=== PATIENT | female | born 1960 | race Hispanic/Latino ===

== ENCOUNTER 2018-05-27 15:09 | Emergency (ER) | payer SELFPAY ==
[~2018-05-27] VITALS: Ht 160 cm; Wt 81.6 kg
--- OUTSIDE RECORDS SUMMARY | 2018-05-27 15:12 | XMS REPORT | Summary of Care ---
Author Author Apolonia Brand M.A. Organization Unknown Address Unknown Phone Unavailable Care Team Providers Care Soccer Coach Name Role Phone MISAEL Alfaro, DANIELLE Unavailable Unavailable Ashley Brand M.A.eralda Unavailable Unavailable NISA GAMBOA [place], TATYANA MCBRIDE Unavailable Unavailable NISA Anderson, TATYANA Ma Unavailable MISAEL SANCHEZ, DANIELLE Unavailable Unavailable Unavailable Unavailable Functional Status Name Dates Details Functional status health issues are not documented Status: Name Dates Details Cognitive status health issues are not documented Status: Problems Name Dates Details Weight gain (783.1, R63.5) Status: Active Flu vaccine need (V04.81, Z23) Status: Active Flu vaccine need (V04.81, Z23) Status: Active Former smoker (V15.82, Z87.891) Status: Active Controlled diabetes mellitus (250.00, E11.9) Status: Active Benign essential HTN (401.1, I10) Status: Active Hypothyroidism, postablative (244.1, E89.0) Status: Active Obesity (BMI 30-39.9) (278.00, E66.9) Status: Active Depression with anxiety (300.4, F41.8) Status: Active Medications Name Dates Details MetFORMIN HCl - 500 MG Oral Tablet TAKE 1 TABLET TWICE DAILY Quantity: 180 DOUGLAS P.A., DANIELLE * Start : 12-Aug-2015 Active Aspirin Adult Low Dose 81 MG Oral Tablet Delayed Release TAKE 1 TABLET DAILY. * Refills: 0 * Start : 12-Aug-2015 Active Vitamin B12 TABS * Refills: 0 Active Billie Contour Test In Vitro Strip TEST ONCE DAILY. * Quantity: 50 Refills: 3 DOUGLAS P.A., DANIELLE * Start : 08-Jun-2016 Active Billie Microlet Lancets For glucose testing once daily. * Quantity: 100 Refills: 1 DOUGLAS P.A., DANIELLE * Start : 08-Jun-2016 Active V-R Vitamin E CAPS * Refills: 0 Active Losartan Potassium 25 MG Oral Tablet TAKE 1 TABLET DAILY * Quantity: 90 Refills: 1 DOUGLAS P.A., DANIELLE * Start : 08-Jul-2017 Active Levothyroxine Sodium 112 MCG Oral Tablet TAKE 1 TABLET DAILY * Quantity: 90 Refills: 1 DOUGLAS P.A., DANIELLE * Start : 01-Mar-2018 Active Venlafaxine HCl ER 75 MG Oral Capsule Extended Release 24 Hour TAKE 1 CAPSULE DAILY * Quantity: 90 Refills: 1 DOUGLAS P.A., DANIELLE * Start : 02-Mar-2018 Active Allergies and Adverse Reactions Name Dates Details No Known Drug Allergies (Allergy) Status: Active Past Medical History Name Dates Details History of diabetes mellitus (V12.29, Z86.39) Status: Resolved History of Graves' disease (V12.29, Z86.39) Status: Resolved History of hyperthyroidism (V12.29, Z86.39) Status: Resolved Procedures Procedure Dates Details [QLH] HEMOGLOBIN A1c Date: 02-Mar-2018 [QL] MICROALBUMIN, RANDOM URINE (W/CREATININE) Date: 02-Mar-2018 [QL] TSH, 3RD GENERATION W/REFLEX TO FT4 Date: 02-Mar-2018 [QLH] T3, TOTAL Date: 02-Mar-2018 [QLH] T4, FREE Date: 02-Mar-2018 [QL] CMP W/EGFR Date: 02-Mar-2018 [] LIPID PANEL WITH REFLEX TO DIRECT LDL Date: 02-Mar-2018 Immunization Name Dates Details Fluzone Quadrivalent 0.5 ML Intramuscular Suspension Lot #: [id number] on: 22-Oct-2016 Fluzone INJ Comments: Approx Family History Name Dates Details Family history of cardiac disorder (V17.49, Z82.49) Status: Active Name Dates Details Family history of diabetes mellitus (V18.0, Z83.3) Status: Active Family history of hyperthyroidism (V18.19, Z83.49) Status: Active Family history of hypothyroidism (V18.19, Z83.49) Status: Active Family history of Melanoma (172.9, C43.9) Status: Active Name Dates Details Family history of diabetes mellitus (V18.0, Z83.3) Status: Active Name Dates Details Family history of cardiac disorder (V17.49, Z82.49) Status: Active Social History Name Dates Details - Status: Name Dates Details Never smoker Former smoker Vital Signs Date Test Result Details [id number] Physical Findings 16 Status: Comments: PHQ-9 Adult Depression Screening :43 BP Systolic 124 mm[Hg] Status: Comments: Location: LUE; Position: Sitting BP Diastolic 62 mm[Hg] Status: Comments: Location: LUE; Position: Sitting Height 63 in Status: Weight 212.5 lb Status: Body Mass Index Calculated 37.64 kg/m2 Status: Body Surface Area Calculated 1.98 m2 Status: Temperature 97.7 f Status: Comments: Method: Temporal Heart Rate 85 /min Status: Respiration Rate 16 /min Status: :41 Physical Findings 0 Status: Comments: Alcohol Screen - How many times in the past yr have you had 5 (for M) or 4 (for F) or 4 (for all > 65yrs) or more drinks in a day? Results Date Description Value Details :00 [O] Hemoglobin A1c (in office) HEMOGLOBIN A1c 6.7 (Normal) :01 [[facility]] T3, TOTAL T3 Total 0.87 ng/ml Range: 0.60-1.81 :01 [[facility]] CMP W/EGFR Sodium Level 139 {mEq/l} Range: 135-145 Potassium Level 4.1 {mEq/l} Range: 3.5-5.1 Chloride Level 103 {mEq/l} Range: 95-109 Carbon Dioxide 28 {mEq/l} Range: 24-32 AGAP 12.1 {mEq/l} Range: 10.0-20.0 Glucose Lvl 119 mg/dl (Above high threshold) Range: 70-99 Comments: Adult reference range values reflect the clinical guidelinesof the [place] [employer]. Creatinine Lvl 0.60 mg/dl Range: 0.50-1.40 Blood Urea Nitrogen 15 mg/dl Range: 7-22 BUN/Creatinine Ratio 25 Range: 6-25 Total Protein 7.2 g/dl Range: 6.4-8.4 Albumin Lvl 3.6 g/dl Range: 3.5-5.0 Globulin 3.6 g/dl Range: 2.7-4.2 A/G Ratio 1.0 Range: 0.7-1.6 Calcium Level Total 8.5 mg/dl Range: 8.5-10.5 ALT 30 u/l Range: 0-65 AST 14 u/l Range: 0-37 Bili Total 0.3 mg/dl Range: 0.2-1.3 Alk Phos 111 u/l Range: 39-136 eGFR 102 {ML/MIN/1.7} Comments: The eGFR is calculated using the CKD-EPI formula. In most young, healthyindividuals the eGFR will be >90 mL/min/1.73m2. The eGFR declines with age. AneGFR of 60-89 may be normal in some populations, particularly the elderly, forwhom the CKD-EPI formula has not been extensively validated. Use of the eGFR isnot recommended in the following populations:Individuals with unstable creatinine concentrations, including patients and those with serious co-morbid conditions.Patients with extremes in muscle mass or diet.The data above are obtained from the National Kidney Disease Education Program(NKDEP) which additionally recommends that when the eGFR is used in patientswith extremes of body mass index for purposes of drug dosing, the eGFR shouldbe multiplied by the estimated BMI. [[facility]] LIPID PANEL Chol 149 mg/dl Range: <=199 Trig 73 mg/dl Range: <=149 HDL Cholesterol 54 mg/dl (Below low threshold) Range: >=61 CHD Risk 2.76 (Below low threshold) Range: 3.90-5.80 LDL 80 mg/dl Range: <=99 VLDL 15 [[facility]] T4, FREE T4 Free 1.18 ng/dl Range: 0.76-1.46 [[facility]] TSH, 3RD GENERATION TSH 1.060 {uIU/ml} Range: 0.360-3.740 [[facility]] MICROALBUMIN, RANDOM URINE (W/O CREATININE) Urine Microalbumin 1420.0 mg/L [[facility]] HEMOGLOBIN A1c Hemoglobin A1c 6.8 % (Above high threshold) Range: <=5.6 Plan of Care Name Dates Details Planned Observations Planned Goals not documented Instructions Name Dates Details Instructions not documented Encounters Appointment; JOHN HICKEY M.D. Encounter Diagnosis: Problem not documented On: 26-Apr-2016 11:30 Appointment; DANIELLE DOUGLAS P.A. Encounter Diagnosis: Problem not documented On: 20-May-2016 13:00 Appointment; VLADIMIR MARTINEZ RD Encounter Diagnosis: Problem not documented On: 08-Jun-2016 13:00 Appointment; JOHN HICKEY M.D. Encounter Diagnosis: Problem not documented On: 06-Jul-2016 13:00 Appointment; DANIELLE DOUGLAS P.A. Encounter Diagnosis: Problem not documented On: 22-Oct-2016 13:00 Appointment; JOHN HICKEY M.D. Encounter Diagnosis: Problem not documented On: 29-Nov-2016 10:00 Appointment; JOHN HICKEY M.D. Encounter Diagnosis: Problem not documented On: 30-May-2017 10:00 Appointment; JOHN HICKEY M.D. Encounter Diagnosis: Problem not documented On: 30-Jun-2017 13:30 Appointment; DANIELLE DOUGLAS P.A. Encounter Diagnosis: Problem not documented On: 08-Jul-2017 13:15 Appointment; DANIELLE DOUGLAS P.A. Encounter Diagnosis: Problem not documented On: 02-Mar-2018 7:30
[2018-05-27 16:00] LABS: BASOPHILS # (AUTO) 0.1 (0.0-0.1); BASOPHILS % 0.5 % (0.0-1.0); EOSINOPHILS # (AUTO) 0.2 (0.0-0.4); EOSINOPHILS % 1.4 % (0.0-6.0); LYMPHOCYTES # (AUTO) 3.4 (1.0-3.2); LYMPHOCYTES % 28.2 % (18.0-39.1); MEAN CORPUSCULAR HEMOGLOBIN 30.2 pg (28-32); MEAN CORPUSCULAR HGB CONC 33.3 g/dL (31-35); MEAN CORPUSCULAR VOLUME 90.7 fL (81-99); MONOCYTES # (AUTO) 0.5 (0.2-0.8); MONOCYTES % 3.8 % (4.4-11.3); NEUTROPHILS # (AUTO) 7.9 (2.1-6.9); NEUTROPHILS % 65.8 % (38.7-80.0); PLATELET COUNT 199 x10e3/uL (140-360); RED CELL DISTRIBUTION WIDTH 16.1 % (11.7-14.4)
[2018-05-27 16:13] LABS: BILIRUBIN,URINE NEGATIVE (NEGATIVE); CLARITY,URINE CLOUDY (CLEAR); COLOR,URINE YELLOW (YELLOW); KETONES,URINE TRACE (NEGATIVE); LEUKOCYTE ESTERASE ,URINE NEGATIVE (NEGATIVE); NITRITE,URINE NEGATIVE (NEGATIVE); PROTEIN,URINE DIPSTICK 2+ (NEGATIVE); URINE UROBILINOGEN 0.2 mg/dL (0.2 - 1)
[2018-05-27 16:14] LABS: ALANINE AMINOTRANSFERASE 21 IU/L (0-55); ALBUMIN 3.8 g/dL (3.5-5.0); ALBUMIN/GLOBULIN RATIO 1.1 (0.8-2.0); ALKALINE PHOSPHATASE 93 IU/L (40-150); ANION GAP 15.5 mmol/L (8-16); BLOOD UREA NITROGEN 17 mg/dL (7-26); BUN/CREATININE RATIO 19 (6-25); CALCIUM 10.3 mg/dL (8.4-10.2); CARBON DIOXIDE 26 mmol/L (22-29); CHLORIDE 103 mmol/L (98-107); CREATINE KINASE 247 IU/L (29-168); CREATININE, SERUM 0.88 mg/dL (0.57-1.11); EST GLOMERULAR FILTRATION RATE > 60 ML/MIN (60-); GLUCOSE 176 mg/dL (74-118); POTASSIUM 3.5 mmol/L (3.5-5.1); SODIUM 141 mmol/L (136-145)
[2018-05-27 16:14] LABS: AMORPHOUS SEDIMENT,URINE FEW (FEW); BACTERIA,URINE MANY /HPF; EPITHELIAL CELLS,URINE FEW /LPF; WBC,URINE (MAN) 0-5 /HPF (0-5)
[2018-05-27] MEDS ORDERED: SODIUM CHLORIDE 0.9% 1000ML 1,000 ML IV STA (16:26)
[2018-05-27 17:13] LABS: FREE THYROXINE INDEX 0.6929 (1.4-3.8); THYROID STIMULATING HORMONE 78.596 uIU/mL (0.350-4.940)
--- NOTE | 2018-05-27 17:18 | Diagnostic Imaging Report ---
EXAMINATION: CHEST SINGLE (PORTABLE) INDICATION: ^CHEST PAIN ^[id number] ^1602 ^Y COMPARISON: None FINDINGS: AP view TUBES and LINES: None. LUNGS: Lungs are well inflated. Bilateral interstitial edema. No lobar consolidations. PLEURA: No pleural effusion or pneumothorax. HEART AND MEDIASTINUM: Prominent cardiac silhouette. BONES AND SOFT TISSUES: No acute osseous lesion. Soft tissues are unremarkable. UPPER ABDOMEN: No free air under the diaphragm. IMPRESSION: Bilateral interstitial edema. Signed by: Dr. Xiao Romero M.D. on 05/27/2018 5:15 PM
[2018-05-27 17:59] VITALS: BP 114/66
== END 2018-05-27 18:14 | disposition home or self-care (01) ==
LOC: ER 15:09
DX: R42 Dizziness and giddiness (principal); K52.9 Noninfective gastroenteritis and colitis, unspecified; E86.0 Dehydration; N30.90 Cystitis, unspecified without hematuria; E03.4 Atrophy of thyroid (acquired); E03.0 Congenital hypothyroidism with diffuse goiter
CPT/HCPCS: 36415; 71045; 80053; 81001; 82550; 82553; 83735; 84436; 84443; 84479; 84484; 85025; 87086; 93005; 99284; J7030

== ENCOUNTER 2018-09-16 13:48 | Emergency (ER) | payer SELFPAY ==
[~2018-09-16] VITALS: Ht 160 cm; Wt 81.6 kg
--- OUTSIDE RECORDS SUMMARY | 2018-09-16 13:51 | XMS REPORT | Continuity of Care Document ---
Author Author Huy [place] [facility] Address Unknown Phone Unavailable Care Team Providers Care Replenishment Specialist Name Role Phone [facility] Unavailable Unavailable Problems No Data Provided for This Section Medications No Data Provided for This Section Allergies, Adverse Reactions, Alerts No Known Medication Allergies Immunizations No Data Provided for This Section Results Order Name Results Value Reference Range Date Interpretation Comments Source Blood leukocytes automated count (number/volume) 11.99 4.8 - 10.8 05/27/2018 [facility] Blood erythrocytes automated count (number/volume) 4.30 3.6 - 5.1 05/27/2018 [facility] Blood hemoglobin measurement (moles/volume) 13.0 12.0 - 16.0 05/27/2018 [facility] Automated blood hematocrit (volume fraction) 39.0 34.2 - 44.1 05/27/2018 [facility] Automated erythrocyte mean corpuscular volume 90.7 81 - 99 05/27/2018 [facility] Automated erythrocyte mean corpuscular hemoglobin (mass per erythrocyte) 30.2 28 - 32 05/27/2018 [facility] Automated erythrocyte mean corpuscular hemoglobin concentration measurement (mass/volume) 33.3 31 - 35 05/27/2018 [facility] RDW BldCo-Rto 16.1 11.7 - 14.4 05/27/2018 [facility] Automated blood platelet count (count/volume) 199 140 - 360 05/27/2018 [facility] Automated blood segmented neutrophil count as percentage of total leukocytes 65.8 38.7 - 80.0 05/27/2018 [facility] Automated blood lymphocyte count as percentage ot total leukocytes 28.2 18.0 - 39.1 05/27/2018 [facility] Automated blood monocyte count as percentage of total leukocytes 3.8 4.4 - 11.3 05/27/2018 [facility] Automated blood eosinophil count as percentage of total leukocytes 1.4 0.0 - 6.0 05/27/2018 [facility] Automated blood basophil count as percentage of total leukocytes 0.5 0.0 - 1.0 05/27/2018 [facility] IM GRANULOCYTES % 0.3 0.0 - 1.0 05/27/2018 [facility] Automated blood neutrophil count 7.9 2.1 - 6.9 05/27/2018 [facility] Blood lymphocytes count (number/volume) 3.4 1.0 - 3.2 05/27/2018 [facility] Blood monocytes automated count (number/volume) 0.5 0.2 - 0.8 05/27/2018 [facility] Automated blood eosinophil count 0.2 0.0 - 0.4 05/27/2018 [facility] Automated blood basophil count (count/volume) 0.1 0.0 - 0.1 05/27/2018 [facility] Absolute Immature Granulocyte (auto 0.04 0 - 0.1 05/27/2018 [facility] Serum or plasma sodium measurement (moles/volume) 141 136 - 145 05/27/2018 [facility] Serum or plasma potassium measurement (moles/volume) 3.5 3.5 - 5.1 05/27/2018 [facility] Serum or plasma chloride measurement (moles/volume) 103 98 - 107 05/27/2018 [facility] Serum or plasma carbon dioxide, total measurement (moles/volume) 26 22 - 29 05/27/2018 [facility] Serum or plasma anion gap 15.5 8 - 16 05/27/2018 [facility] Serum or plasma urea nitrogen measurement (mass/volume) 17 7 - 26 05/27/2018 [facility] Serum or plasma creatinine measurement (mass/volume) 0.88 0.57 - 1.11 05/27/2018 [facility] Serum or plasma urea nitrogen/creatinine mass ratio 19 6 - 25 05/27/2018 [facility] Estimated glomerular filtration rate (GFR) determination > 60 60 05/27/2018 [facility] Glucose measurement 176 74 - 118 05/27/2018 [facility] Serum or plasma calcium measurement (mass/volume) 10.3 8.4 - 10.2 05/27/2018 [facility] Serum or plasma magnesium measurement (mass/volume) 1.7 1.3 - 2.1 05/27/2018 [facility] Serum or plasma total bilirubin measurement (mass/volume) 0.4 0.2 - 1.2 05/27/2018 [facility] Aspartate Amino Transf (AST/SGOT) 22 5 - 34 05/27/2018 [facility] Serum or plasma alanine aminotransferase measurement (enzymatic activity/volume) 21 0 - 55 05/27/2018 [facility] Serum or plasma protein measurement (mass/volume) 7.4 6.5 - 8.1 05/27/2018 [facility] Serum or plasma albumin measurement (mass/volume) 3.8 3.5 - 5.0 05/27/2018 [facility] Plasma globulin measurement (mass/volume) 3.6 2.3 - 3.5 05/27/2018 [facility] Serum or plasma albumin/globulin mass ratio 1.1 0.8 - 2.0 05/27/2018 [facility] Serum or plasma alkaline phosphatase measurement (enzymatic activity/volume) 93 40 - 150 05/27/2018 [facility] Serum or plasma creatine kinase measurement (enzymatic activity/volume) 247 29 - 168 05/27/2018 [facility] Serum or plasma creatine kinase MB measurement (mass/volume) 4.50 0 - 5.0 05/27/2018 [facility] Troponin I measurement by highly sensitive enzyme immunoassay < 0.001 0 - 0.300 05/27/2018 [facility] Free thyroxine index 0.6929 1.4 - 3.8 05/27/2018 [facility] Serum or plasma thyroxine (T4) measurement (mass/volume) 2.44 4.5 - 10.9 05/27/2018 [facility] Serum or plasma triiodothyronine resin uptake (T3RU) 28.40 22.5 - 37.0 05/27/2018 [facility] Serum or plasma thyrotropin measurement by detection limit <=0.005 miu/l (units/volume) 78.596 0.350 - 4.940 05/27/2018 [facility] Urine color determination YELLOW YELLOW 05/27/2018 [facility] Urine clarity CLOUDY CLEAR 05/27/2018 [facility] Specific gravity of Urine by Test strip 1.030 1.010 - 1.025 05/27/2018 [facility] Urine pH measurement by automated test strip 6 5 - 7 05/27/2018 [facility] Urine leukocyte esterase detection by dipstick NEGATIVE NEGATIVE 05/27/2018 [facility] Urine nitrite detection NEGATIVE NEGATIVE 05/27/2018 [facility] Urine protein measurement by test strip (mass/volume) 2+ NEGATIVE 05/27/2018 [facility] Urine glucose detection NEGATIVE NEGATIVE 05/27/2018 [facility] Urine ketones detection by automated test strip TRACE NEGATIVE 05/27/2018 [facility] Urine urobilinogen measurement by test strip (mass/volume) 0.2 0.2 - 1 05/27/2018 [facility] Urine total bilirubin measurement (mass/volume) NEGATIVE NEGATIVE 05/27/2018 [facility] Urine erythrocytes detection NEGATIVE NEGATIVE 05/27/2018 [facility] Automated urine sediment leukocyte count by microscopy (number/high power field) 0-5 0 - 5 05/27/2018 [facility] Erythrocytes detection in urine sediment by light microscopy NONE 0 - 5 05/27/2018 [facility] Bacteria detection in urine sediment by light microscopy MANY NONE 05/27/2018 [facility] Epithelial cells detection in urine sediment by light microscopy FEW NONE 05/27/2018 [facility] Amorphous sediment detection in urine sediment by light microscopy FEW FEW 05/27/2018 [facility] Pathology Reports No Data Provided for This Section Diagnostic Reports No Data Provided for This Section Consultation Notes No Data Provided for This Section Discharge Summaries No Data Provided for This Section History and Physicals No Data Provided for This Section Vital Signs No Data Provided for This Section Encounters Location Location Details Encounter Type Encounter Number Reason For Visit Attending Provider ADM Date DC Date Status Source Departed Emergency Room [id number] EAMON GREENE MD 05/27/2018 05/27/2018 [facility] Procedures No Data Provided for This Section Assessment and Plan No Data Provided for This Section Plan of Care Plan of Care Date Source Discharge Date 05/27/18 6:14pm Disposition HOME, SELF-CARE Condition at Discharge Stable Instructions/Education Provided Dehydration - Adult Dizziness Hypothyroidism Urinary Tract Infection - Women Forms Provided Work/School Excuse Prescriptions See Medication Section Referrals Magda Doe Additional Instructions/Education 1. REST 2. DRINK PLENTY OF FLUIDS. 3. FOLLOW UP WITH YOUR DOCTOR ON TUESDAY. CALL FOR AN APPOINTMENT. 4. TAKE MEDICATIONS PRESCRIBED. 5. RETURN TO ED IF SYMPTOMS WORSEN OR HAVE ANY CONCERNS. 05/27/2018 [facility] Social History Social History Date Source Smoking Status Start Date Stop Date Never Smoker 05/27/2018 [facility] Family History No Data Provided for This Section Advance Directives Order Name Results Value Date Source Advance Directives Advance Directives Directive Response Recorded Date/Time Does the patient have an advance directive? No 04/05/11 2:23pm If yes, is advance directive on file with [facility]? No 04/05/11 2:23pm If not on file with [facility] will patient provide a copy? No 04/05/11 2:23pm Do you have a Directive to Physician? No 05/27/18 3:53pm Do you have a Medical Power of Shortage Worker? No 05/27/18 3:53pm Do you have an out of hospital Do Not Resuscitate Order? No 05/27/18 3:53pm Do you have any special needs we should be aware of? No 05/27/18 3:53pm Do you have a support person here with you today? No 05/27/18 3:53pm Did patient receive Notice of Privacy Practices? Yes 05/27/18 3:53pm Did patient receive patient rights and responsibilities? Yes 05/27/18 3:53pm 05/27/2018 [facility] Functional Status No Data Provided for This Section
--- OUTSIDE RECORDS SUMMARY | 2018-09-16 13:51 | XMS REPORT | Summary of Care ---
Author Author Megan Ashraf LVN Unknown Address [facility] Phone Unavailable Care Team Providers Care B And B Gang Worker Name Role Phone MISAEL Alfaro, DANIELLE Unavailable Unavailable NISA GAMBOA [place], TATYANA MCBRIDE Unavailable Unavailable NISA Anderson, TATYANA Unavailable Unavailable DANIELLE DOUGLAS PA-C Unavailable Unavailable Unavailable Unavailable Functional Status Name Dates Details Functional status health issues are not documented Status: Name Dates Details Cognitive status health issues are not documented Status: Problems Name Dates Details Weight gain (783.1, R63.5) Status: Active Flu vaccine need (V04.81, Z23) Status: Active Flu vaccine need (V04.81, Z23) Status: Active Former smoker (V15.82, Z87.891) Status: Active Benign essential HTN (401.1, I10) Status: Active Hypothyroidism, 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 * Refills: 0 * Start : 12-Aug-2015 Active Vitamin B12 TABS * Refills: 0 Active Billie Contour Test STRP TEST ONCE DAILY. * Quantity: 50 Refills: 3 DOUGLAS P.A., DANIELLE * Start : 08-Jun-2016 Active Billie Microlet Lancets MISC For glucose testing once daily. * Quantity: 100 Refills: 1 DOUGLAS P.A., DANIELLE * Start : 08-Jun-2016 Active V-R Vitamin E CAPS * Refills: 0 Active Losartan Potassium 25 MG Oral Tablet TAKE 1 TABLET BY MOUTH ONCE DAILY * Quantity: 90 Refills: 0 MISAEL P.A., DANIELLE * Start : 08-Jul-2017 Active Levothyroxine Sodium 100 MCG Oral Tablet TAKE 1 TABLET DAILY. * Quantity: 90 Refills: 0 MISAEL P.A., DANIELLE * Start : 01-Mar-2018 Active Venlafaxine HCl ER 75 MG Oral Capsule Extended Release 24 Hour TAKE 1 CAPSULE BY MOUTH ONCE DAILY * Quantity: 90 Refills: 0 MISAEL P.A., DANIELLE * Start : 02-Mar-2018 Active Allergies and Adverse Reactions Name Dates Details No Known Drug Allergies (Allergy) Status: Active Past Medical History Name Dates Details History of diabetes mellitus (V12.29, Z86.39) Status: Resolved History of Graves' disease (V12.29, Z86.39) Status: Resolved History of hyperthyroidism (V12.29, Z86.39) Status: Resolved Procedures Procedure Dates Details Procedures not documented Immunization Name Dates Details Fluzone Quadrivalent 0.5 ML Intramuscular Suspension Lot #: [id number] on: 22-Oct-2016 Fluzone INJ Comments: Approx Family [...] smoker Vital Signs Date Test Result Details No Known Vitals to report Results Date Description Value Details Results not documented Plan of Care Name Dates Details Planned Observations Planned Goals not documented Planned Encounters Appointment; DANIELLE DOUGLAS P.A. On: 02-Oct-2018 10:30 Interventions Provided Medication Changes* Losartan Potassium 25 MG Oral Tablet - Renew * metFORMIN HCl - 500 MG Oral Tablet - Renew * Venlafaxine HCl ER 75 MG Oral Capsule Extended Release 24 Hour - Renew Instructions Name Dates Details Instructions not documented Encounters Appointment; DANIELLE DOUGLAS P.A. Encounter Diagnosis: Problem not documented On: 22-Oct-2016 13:00 Appointment; JOHN HICKEY M.D. Encounter Diagnosis: Problem not documented On: 29-Nov-2016 10:00 Appointment; JOHN HICKEY M.D. Encounter Diagnosis: Problem not documented On: 30-May-2017 10:00 Appointment; JHON HICKEY M.D. Encounter Diagnosis: Problem not documented On: 30-Jun-2017 13:30 Appointment; DANIELLE DOUGLAS P.A. Encounter Diagnosis: Problem not documented On: 08-Jul-2017 13:15 Appointment; DANIELLE DOUGLAS P.A. Encounter Diagnosis: Problem not documented On: 02-Mar-2018 7:30 Appointment; DANIELLE DOUGLAS P.A. Encounter Diagnosis: Problem not documented On: 06-Jun-2018 9:15
--- OUTSIDE RECORDS SUMMARY | 2018-09-16 13:51 | XMS REPORT ---
Author Author [facility] Address Unknown Phone Unavailable Care Team Providers Care Manager Of Training And Development Name Role Phone Mirian GREENE Unavailable Unavailable Problems This patient has no known problems. Allergies, Adverse Reactions, Alerts This patient has no known allergies or adverse reactions. Medications This patient has no known medications. Results Test Description Test Time Test Comments Text Results Atomic Results Result Comments CHEST SINGLE (PORTABLE) 2018-05-27 17:14:00 [place] [id number] Patient Name: ITALO MUELLER MR #: [id number] : 1960 Age/Sex: 58/F Req #: [id number] Adm Physician: Ordered by: EAMON GREENE MD Report #: [id number] Location: ER Room/Bed: Procedure: [id number] DX/CHEST SINGLE (PORTABLE) Exam Date: 05/27/18 Exam Time: 1602 REPORT STATUS: Signed EXAMINATION: CHEST SINGLE (PORTABLE) INDIC ATION: CHEST PAIN [id number] [address]2 Y COMPARISON: None FINDINGS: AP view TUBES and LINES: None. LUNGS: Lungs are well inflated. Bilateral interstitial edema. No lobar consolidations. PLEURA: No pleural effusion or pneumothorax. HEART AND MEDIASTINUM: Prominent cardiac silhouette. BONES AND SOFT TISSUES: No acute osseous lesion. Soft tissues are unremarkable. UPPER ABDOMEN: No free air under the diaphragm. IMPRESSION: Bilateral interstitial edema. Signed by: Dr. Elizabeth Vincent M.D. on 05/27/2018 5:15 PM Dictated By: ELIZABETH VINCENT MD 14 Transcribed By: YANDEL on 05/27/181714 COPY TO: EAMON GREENE MD
[2018-09-16] MEDS ORDERED: TRAMADOL HCL 50 MG TAB PO NR (14:00)
--- NOTE | 2018-09-16 15:41 | Diagnostic Imaging Report ---
KNEE RIGHT THREE VIEWS - 3 views HISTORY: Pain COMPARISON: None available. FINDINGS: Bones: No acute displaced fracture. Osseous alignment is within normal limits. Joints: The joint spaces are well-maintained. Soft tissues: The soft tissues appear unremarkable. IMPRESSION: No acute radiographic abnormality. Signed by: Dr. Bj Golden MD on 09/16/2018 3:38 PM
--- NOTE | 2018-09-16 15:42 | Diagnostic Imaging Report ---
Lumbar Spine Radiographs: 3 views HISTORY: Pain COMPARISON: None available. DISCUSSION: Some of the osseous structures are partially obscured by stool and bowel gas. There are five non-rib bearing lumbar vertebral bodies. The alignment of the spine is within normal limits. No displaced fracture or compression deformity is identified. Vertebral body heights are maintained. Mild degenerative changes. IMPRESSION: No acute radiographic abnormality. Signed by: Dr. Bj Golden MD on 09/16/2018 3:39 PM
== END 2018-09-16 16:24 | disposition home or self-care (01) ==
LOC: ER 13:48
DX: M54.5 Low back pain (principal); M25.561 Pain in right knee; S39.012A Strain of muscle, fascia and tendon of lower back, initial encounter; S80.01XA Contusion of right knee, initial encounter; W01.0XXA Fall on same level from slipping, tripping and stumbling without subsequent striking against object, initial encounter; Y99.0 Civilian activity done for income or pay; I10 Essential (primary) hypertension; E11.9 Type 2 diabetes mellitus without complications; E03.9 Hypothyroidism, unspecified; F32.9 Major depressive disorder, single episode, unspecified
CPT/HCPCS: 72110; 99283

== ENCOUNTER 2023-08-12 10:35 | Inpatient (IN) | payer OTHER ==
[~2023-08-12] VITALS: Ht 154.9 cm; Wt 90.3 kg
[2023-08-12] VITALS (7 sets, daily range): BP systolic 145–148; BP diastolic 75–80; PULSE 101–104; RESP 14–17; TEMP 98–99.2; O2SAT 93–94
[2023-08-12 11:32] LABS: BASOPHILS % 0.3 % (0.0-1.0); EOSINOPHILS % 0.3 % (0.0-6.0); LYMPHOCYTES # (AUTO) 1.3 (1.0-3.2); LYMPHOCYTES % 10.2 % (18.0-39.1); MEAN CORPUSCULAR HEMOGLOBIN 27.8 pg (28-32); MEAN CORPUSCULAR HGB CONC 32.4 g/dL (31-35); MEAN CORPUSCULAR VOLUME 85.9 fL (81-99); MONOCYTES # (AUTO) 0.5 (0.2-0.8); MONOCYTES % 4.3 % (4.4-11.3); NEUTROPHILS # (AUTO) 10.5 (2.1-6.9); NEUTROPHILS % 84.5 % (38.7-80.0); PLATELET COUNT 171 x10e3/uL (140-360); RED BLOOD COUNT 3.96 x10e6/uL (3.6-5.1); WHITE BLOOD COUNT 12.39 x10e3/uL (4.8-10.8)
[2023-08-12 11:44] LABS: INR 1.05; PROTHROMBIN TIME 14.4 seconds (11.9-14.5)
[2023-08-12 11:45] LABS: PARTIAL THROMBOPLASTIN TIME 33.2 seconds (23.8-35.5)
[2023-08-12 11:55] LABS: ALANINE AMINOTRANSFERASE 21 IU/L (0-55); ALBUMIN 2.8 g/dL (3.5-5.0); ALBUMIN/GLOBULIN RATIO 0.5 (0.8-2.0); ALKALINE PHOSPHATASE 87 IU/L (40-150); ANION GAP 16.5 mmol/L (8-16); BILIRUBIN,TOTAL 0.6 mg/dL (0.2-1.2); BLOOD UREA NITROGEN 17 mg/dL (7-26); BUN/CREATININE RATIO 16 (6-25); CALCIUM 9.9 mg/dL (8.4-10.2); CARBON DIOXIDE 23 mmol/L (22-29); CHLORIDE 96 mmol/L (98-107); CREATINE KINASE 10 IU/L (29-168); CREATININE, SERUM 1.07 mg/dL (0.57-1.11); EST GLOMERULAR FILTRATION RATE 59 ML/MIN (>=60); GLUCOSE 91 mg/dL (74-118); POTASSIUM 3.5 mmol/L (3.5-5.1); SODIUM 132 mmol/L (136-145); TOTAL PROTEIN 8.1 g/dL (6.5-8.1)
[2023-08-12 12:02] LABS: MAGNESIUM 1.6 MG/DL (1.3-2.1)
[2023-08-12 12:03] LABS: TROPONIN I < 0.001 ng/mL (0-0.300)
[2023-08-12] MEDS: SODIUM CHLORIDE 0.9% 1000ML 1,000 ML IV STA ×2 (12:06→15:45)
[2023-08-12] MEDS ORDERED: CEFTRIAXONE 1 GM VIAL ONE (12:08)
[2023-08-12 12:19] LABS: B-TYPE NATRIURETIC PEPTIDE2 < 10.0 pg/mL (0-100)
[2023-08-12 12:24] LABS: THYROID STIMULATING HORMONE 0.765 uIU/mL (0.350-4.940)
[2023-08-12] MEDS ORDERED: DEXTROSE 50% SYRINGE 50 ML IV ONE (13:58)
[2023-08-12 14:37] LABS: BILIRUBIN,URINE SMALL (NEGATIVE); CLARITY,URINE CLEAR (CLEAR); COLOR,URINE YELLOW (YELLOW); GLUCOSE, URINE NEGATIVE (NEGATIVE); KETONES,URINE TRACE (NEGATIVE); LEUKOCYTE ESTERASE ,URINE TRACE (NEGATIVE); NITRITE,URINE NEGATIVE (NEGATIVE); PH,URINE 6 (5 - 7); PROTEIN,URINE DIPSTICK 2+ (NEGATIVE); URINE UROBILINOGEN 2 mg/dL (0.2 - 1)
[2023-08-12 14:38] LABS: BACTERIA,URINE MANY /HPF; WBC,URINE (MAN) 21-50 /HPF (0-5)
[2023-08-12 14:39] LABS: EPITHELIAL CELLS,URINE MODERATE /LPF; HYALINE CASTS 0-1 (0-1); MUCUS,URINE FEW (RARE)
[2023-08-12 14:40] LABS: AMPHETAMINES SCREEN,URINE NEGATIVE (NEGATIVE); BENZODIAZEPINES SCREEN,URINE NEGATIVE (NEGATIVE); CANNABINOIDS SCREEN,URINE NEGATIVE (NEGATIVE); METHADONE SCREEN, URINE NEGATIVE (NEGATIVE); OPIATES SCREEN,URINE NEGATIVE (NEGATIVE); PHENCYCLIDINE SCREEN,URINE NEGATIVE (NEGATIVE)
[2023-08-12] MEDS ORDERED: INSULIN LISPRO 100 UNIT/1 ML 3ML VIAL SQ SCH (15:15)
[2023-08-12] MEDS ORDERED: ONDANSETRON HCL INJ 2MG/ML 2ML 2 MG/ML VIAL IV PRN (15:15)
[2023-08-12] MEDS ORDERED: DEXTROSE 50% SYRINGE 50 ML IV PRN (15:15)
[2023-08-12] MEDS ORDERED: FAMOTIDINE 20 MG/2 ML VIAL IV SCH (15:15)
[2023-08-12] MEDS: DEXTROSE 5%/0.9% SOD CHL 1,000 ML IV ONE (15:45)
[2023-08-12] MEDS: Vancomycin IV 1 GM in SODIUM CHLORIDE 0.9% 250ML 250 ML IV ONE (15:45)
[2023-08-12] MEDS: DEXTROSE 50% SYRINGE 50 ML IV STA (15:46)
[2023-08-12] MEDS ORDERED: LOSARTAN POTASS50 MG PO (18:11)
[2023-08-12] MEDS ORDERED: METFORMIN HCL1000 MG PO (18:11)
[2023-08-12] MEDS ORDERED: VENLAFAXINE HCL75 M1 PO (18:11)
[2023-08-12] MEDS ORDERED: OZEMPIC0.25 MG/02 SQ (18:11)
[2023-08-12] MEDS ORDERED: LEVOTHYROXINE150 MCG PO (18:11)
[2023-08-12] MEDS ORDERED: SIMVASTATIN10 MG PO (18:11)
[2023-08-12] MEDS: INSULIN LISPRO 100 UNIT/1 ML 3ML VIAL SQ SCH (20:59)
[2023-08-12] MEDS: FAMOTIDINE 20 MG/2 ML VIAL IV SCH (20:59)
[2023-08-12] MEDS: ACETAMINOPHEN 325 MG TAB PO PRN (23:42)
[2023-08-13] VITALS (7 sets, daily range): BP systolic 126–162; BP diastolic 62–73; PULSE 70–107; RESP 18–20; TEMP 97.8–98.8; O2SAT 93–100
[2023-08-13 05:48] LABS: BASOPHILS % 0.3 % (0.0-1.0); EOSINOPHILS # (AUTO) 0.1 (0.0-0.4); EOSINOPHILS % 0.8 % (0.0-6.0); HEMATOCRIT 32.5 % (34.2-44.1); LYMPHOCYTES # (AUTO) 1.4 (1.0-3.2); LYMPHOCYTES % 12.4 % (18.0-39.1); MEAN CORPUSCULAR HEMOGLOBIN 27.2 pg (28-32); MEAN CORPUSCULAR HGB CONC 30.8 g/dL (31-35); MEAN CORPUSCULAR VOLUME 88.3 fL (81-99); MONOCYTES # (AUTO) 0.9 (0.2-0.8); MONOCYTES % 8.3 % (4.4-11.3); NEUTROPHILS # (AUTO) 8.5 (2.1-6.9); NEUTROPHILS % 77.6 % (38.7-80.0); PLATELET COUNT 162 x10e3/uL (140-360); RED BLOOD COUNT 3.68 x10e6/uL (3.6-5.1); RED CELL DISTRIBUTION WIDTH 15.2 % (11.7-14.4); WHITE BLOOD COUNT 10.95 x10e3/uL (4.8-10.8)
[2023-08-13 06:05] LABS: CREATINE KINASE 12 IU/L (29-168)
[2023-08-13 06:08] LABS: ALBUMIN 2.2 g/dL (3.5-5.0); ALBUMIN/GLOBULIN RATIO 0.5 (0.8-2.0); ANION GAP 14.7 mmol/L (8-16); BILIRUBIN,TOTAL 0.4 mg/dL (0.2-1.2); CALCIUM 8.9 mg/dL (8.4-10.2); CHOL/HDL RATIO 5.2 (3.0-3.6); CREATININE, SERUM 0.84 mg/dL (0.57-1.11); POTASSIUM 3.7 mmol/L (3.5-5.1); TOTAL PROTEIN 6.7 g/dL (6.5-8.1)
[2023-08-13 06:18] LABS: TROPONIN I < 0.001 ng/mL (0-0.300)
[2023-08-13] MEDS ORDERED: DEXTROSE 50% SYRINGE 50 ML IV PRN (11:15)
[2023-08-13] MEDS ORDERED: ONDANSETRON HCL INJ 2MG/ML 2ML 2 MG/ML VIAL IV PRN (11:30)
[2023-08-13] MEDS: INSULIN LISPRO 100 UNIT/1 ML 3ML VIAL SQ SCH ×2 (11:30→15:55)
[2023-08-13] MEDS: VENLAFAXINE HCL 75 MG CAPCR PO SCH (13:11)
[2023-08-13] MEDS: LEVOTHYROXINE SODIUM 75 MCG TAB PO SCH ×2 (13:11→13:36)
[2023-08-13 15:30] LABS: CREATINE KINASE < 7 IU/L (29-168)
[2023-08-13 15:39] LABS: TROPONIN I < 0.001 ng/mL (0-0.300)
[2023-08-13 16:03] LABS: FREE T4 (FREE THYROXINE) 1.21 ng/dL (0.8-1.8); THYROID STIMULATING HORMONE 0.885 uIU/mL (0.350-4.940)
[2023-08-13] MEDS: ACETAMINOPHEN 325 MG TAB PO PRN (21:36)
[2023-08-14] VITALS: BP 133/69; PULSE 82; RESP 18; TEMP 97.6; O2SAT 100
[2023-08-14 04:00] VITALS: BP 131/68; PULSE 84; RESP 18; TEMP 97.5; O2SAT 100
[2023-08-14 05:42] LABS: BASOPHILS % 0.4 % (0.0-1.0); EOSINOPHILS # (AUTO) 0.1 (0.0-0.4); EOSINOPHILS % 1.3 % (0.0-6.0); LYMPHOCYTES # (AUTO) 1.6 (1.0-3.2); LYMPHOCYTES % 18.1 % (18.0-39.1); MEAN CORPUSCULAR HEMOGLOBIN 27.6 pg (28-32); MEAN CORPUSCULAR HGB CONC 31.4 g/dL (31-35); MEAN CORPUSCULAR VOLUME 87.9 fL (81-99); MONOCYTES # (AUTO) 0.7 (0.2-0.8); MONOCYTES % 7.4 % (4.4-11.3); NEUTROPHILS # (AUTO) 6.5 (2.1-6.9); NEUTROPHILS % 71.8 % (38.7-80.0); PLATELET COUNT 227 x10e3/uL (140-360); RED BLOOD COUNT 3.98 x10e6/uL (3.6-5.1); RED CELL DISTRIBUTION WIDTH 15.3 % (11.7-14.4)
[2023-08-14 06:04] LABS: ANION GAP 14.3 mmol/L (8-16); CALCIUM 9.7 mg/dL (8.4-10.2); CREATININE, SERUM 0.83 mg/dL (0.57-1.11)
[2023-08-14 06:08] LABS: POTASSIUM 3.3 mmol/L (3.5-5.1)
[2023-08-14 06:21] LABS: MAGNESIUM 1.7 MG/DL (1.3-2.1); PHOSPHORUS 3.3 MG/DL (2.3-4.7)
[2023-08-14 07:51] VITALS: BP 131/68; PULSE 84; RESP 18; TEMP 97.5; O2SAT 100
[2023-08-14 08:12] VITALS: BP 144/77; PULSE 83; RESP 19; TEMP 97.7; O2SAT 98
[2023-08-14] MEDS ORDERED: CEFTRIAXONE 1 GM VIAL ONE (08:31)
[2023-08-14] MEDS: BISACODYL 10 MG SUPP PR ONE (10:17)
== END 2023-08-14 13:12 | disposition home or self-care (01) | DRG 872 ==
LOC: ER 10:40 → ERHOLD 15:12 → MED/SURG2 17:16
PROVIDERS: ADMIT Internal Medicine; ATTEND Internal Medicine
PROC: 3E0333Z Introduction of Anti-inflammatory into Peripheral Vein, Percutaneous Approach (ICD-10-PCS; principal; 2023-08-12)
DX: A41.9 Sepsis, unspecified organism (principal); N39.0 Urinary tract infection, site not specified; E44.0 Moderate protein-calorie malnutrition; R65.20 Severe sepsis without septic shock; E11.649 Type 2 diabetes mellitus with hypoglycemia without coma; I10 Essential (primary) hypertension; E03.9 Hypothyroidism, unspecified; F32.A Depression, unspecified; E78.5 Hyperlipidemia, unspecified; Z11.52 Encounter for screening for COVID-19; R33.9 Retention of urine, unspecified; N32.81 Overactive bladder; F32.9 Major depressive disorder, single episode, unspecified; E86.0 Dehydration; E66.9 Obesity, unspecified; Z68.37 Body mass index [BMI] 37.0-37.9, adult; T38.3X5A Adverse effect of insulin and oral hypoglycemic [antidiabetic] drugs, initial encounter; Z79.84 Long term (current) use of oral hypoglycemic drugs; Z79.890 Hormone replacement therapy
CPT/HCPCS: 36415; 51700; 70450; 71045; 80048; 80053; 80061; 80307; 81001; 82550; 82607; 82746; 82948; 83036; 83605; 83735; 83880; 84100; 84439; 84443; 84484; 85025; 85610; 85730; 87040; 87086; 93005; 99285; J0696; J7030; J7042; J7050; J7799; U0002